=== PATIENT | female | born 1970 | race Caucasian/White ===

== ENCOUNTER 2023-06-05 09:02 | Day surgery (SDC) | payer OTHER ==
[~2023-06-05] VITALS: Ht 165.1 cm; Wt 98.1 kg
[2023-06-05] VITALS (17 sets, daily range): BP systolic 124–162; BP diastolic 55–107
[~2023-06-05 09:02] MED LIST: BUPR100; CELE100; CIPR500 PO; CITA20 PO; DULO60 PO; ESTR2 PO; GABA300 PO; IBUP400; LOSA50 PO; MELO7.5 PO; MULVITA PO; OMEP20ER PO; OXYACE7.5T PO; Pepto-Bismol262 M1 PO; SUCR1SU PO
[2023-06-05] MEDS ORDERED: TIMO.25OPS BOTHEYES (09:41)
--- NOTE | 2023-06-05 10:04 | NUR ---
Ambulatory in Day Surgery History, Chart, Medications and Allergies reviewed before start of procedure.Lungs clear T/O to Auscultation. Patient confirms NPO status and agrees with scheduled surgery. Patient states colon prep results clear. Patient States Post-Procedure ride home has been arranged.
--- NOTE | 2023-06-05 10:10 | NUR ---
06/05/23 Cristy Gilmore HISTORY, CHART, MEDICATIONS AND ALLERGIES REVIEWED BEFORE START OF PROCEDURE. PATIENT CONFIRMS NPO STATUS AND AGREES WITH SCHEDULED PROCEDURE. 3-LEAD EKG REVIEWED WITH PHYSICIAN PRIOR TO START OF PROCEDURE. MONITOR INTACT WITH CONTINUOUS PULSE OXIMETRY,CAPNOGRAPHY, 3-LEAD EKG, INTERMITTENT BP. SUPPLEMENTAL O2 TO BE TITRATED THROUGHOUT PROCEDURE TO MAINTAIN O2 SATURATION ABOVE 90%. PATIENT DETERMINED TO BE ASA APPROPRIATE FOR PROPOFOL SEDATION PRIOR TO START OF PROCEDURE BY .
--- NOTE | 2023-06-05 11:12 | NUR ---
Patient up to Ambulate independently. Gait steady. Discharge instructions reviewed with patient. Patient verbalizes understanding. Copy given to patient to take home. Patient States Post-Procedure ride home has been arranged, REPORTS PICKING HER UP, BEEN NOTIFIED. Discharged via wheelchair to private car for ride home.
== END 2023-06-05 11:12 | disposition home or self-care (01) ==
LOC: ORSCMMR 09:02 → ORD 10:00 → ORSCMMR 10:00
PROVIDERS: Internal Medicine Gastroenterology
PROC: 0DJD8ZZ Inspection of Lower Intestinal Tract, Via Natural or Artificial Opening Endoscopic (ICD-10-PCS; principal; 2023-06-05 10:00)
DX: Z12.11 Encounter for screening for malignant neoplasm of colon (principal); I10 Essential (primary) hypertension; F32.A Depression, unspecified; Z79.899 Other long term (current) drug therapy
CPT/HCPCS: J2704; J7120